=== PATIENT | female | born 1960 | race African-American/Black ===

== ENCOUNTER 2019-11-22 08:24 | Emergency (ER) | payer MEDICARE, MEDICAID ==
[~2019-11-22] VITALS: Ht 167.6 cm; Wt 81.8 kg
[2019-11-22 09:31] VITALS: BP 162/78
== END 2019-11-22 10:30 | disposition home or self-care (01) ==
LOC: ED 08:24
DX: I10 Essential (primary) hypertension (principal)

== ENCOUNTER 2019-12-21 16:02 | Emergency (ER) | payer MEDICARE, MEDICAID ==
[~2019-12-21] VITALS: Ht 167.6 cm; Wt 85.0 kg
[2019-12-21 16:39] LABS: HEMATOCRIT 33.4 % (37.0-47.0); HEMOGLOBIN 11.2 g/dl (12.0-16.0); IMMATURE GRANULOCYTES 0.4 % (0.0-5.0); MEAN CORPUSCULAR HGB 30.2 pG CALC (26.0-32.0); MEAN CORPUSCULAR HGB CONC 33.5 g/dL CAL (32.0-36.0); RED BLOOD COUNT 3.71 mill/uL (4.20-5.60); RED CELL DISTRI WIDTH 12.2 % (11.5-15.5)
[2019-12-21 16:51] LABS: ALBUMIN 4.2 g/dL (3.2-5.0); ALKALINE PHOSPHATASE 97 u/l (38-126); ANION GAP 16 (6-22 (CALC)); BILIRUBIN, TOTAL 0.5 mg/dL (0.0-1.4); CARBON DIOXIDE 24 mmol/l (22-30); CHLORIDE 105 mmol/l (95-108); CREATININE 1.1 mg/dL (0.5-1.0); GFR 51 ML/MIN (>=60 (CALC)); GFR FOR AFR.AMER. > 60 ML/MIN (>=60 (CALC)); SGOT/AST 18 u/l (14-36); SODIUM 141 mmol/l (137-146); TOTAL PROTEIN 7.1 g/dL (6.3-8.2)
[2019-12-21 16:56] LABS: BUN 30 mg/dL (7-17); BUN/CREATININE RATIO 27 (12-20 (CALC))
[2019-12-21] MEDS ORDERED: KEFLEX500 M1 PO (17:17)
[2019-12-21 17:30] VITALS: BP 120/60
== END 2019-12-21 17:30 | disposition home or self-care (01) ==
LOC: ED 16:02
DX: L03.116 Cellulitis of left lower limb (principal); E11.9 Type 2 diabetes mellitus without complications; I10 Essential (primary) hypertension; F17.210 Nicotine dependence, cigarettes, uncomplicated

== ENCOUNTER 2021-02-01 10:10 | Emergency (ER) | payer MEDICARE, MEDICAID ==
[~2021-02-01] VITALS: Ht 167.6 cm; Wt 85.0 kg
[~2021-02-01 10:10] MED LIST: KEFLEX500 M1 PO
[2021-02-01] MEDS ORDERED: TRAMADOL HYDROC50 M1 PO (14:47)
[2021-02-01 14:57] VITALS: BP 107/58
== END 2021-02-01 16:13 | disposition home or self-care (01) ==
LOC: ED 10:10
DX: M79.672 Pain in left foot (principal); M25.572 Pain in left ankle and joints of left foot; M25.562 Pain in left knee; S00.11XA Contusion of right eyelid and periocular area, initial encounter; E11.9 Type 2 diabetes mellitus without complications; I10 Essential (primary) hypertension; E78.00 Pure hypercholesterolemia, unspecified; M10.9 Gout, unspecified; F17.210 Nicotine dependence, cigarettes, uncomplicated; W18.2XXA Fall in (into) shower or empty bathtub, initial encounter; Y92.002 Bathroom of unspecified non-institutional (private) residence as the place of occurrence of the external cause